=== PATIENT | male | born 1955 | race Caucasian/White ===

== ENCOUNTER 2017-02-20 12:56 | Emergency (ER) | payer OTHER ==
[~2017-02-20] VITALS: Ht 177.8 cm; Wt 98.0 kg
[2017-02-20 12:59] VITALS: Ht 177.8 cm; Wt 98.0 kg
[2017-02-20] MEDS ORDERED: SOD CHLORIDE 0.9% 2,000 ML IV STA (13:46)
[2017-02-20 14:19] LABS: BASOPHIL # 0.1 10^3/ul (0.0-0.1); BASOPHILS % 0.7 % (0.0-2.0); EOSINOPHILS # 0.2 10^3/ul (0.0-0.5); EOSINOPHILS % 1.6 % (0.0-7.0); HEMATOCRIT 43.1 % (42.0-52.0); LYMPHOCYTES # 2.2 10^3/ul (0.8-2.9); LYMPHOCYTES % 23.1 % (15.0-51.0); MEAN CORPUSCULAR HEMOGLOBIN 30.2 pg (29.0-33.0); MEAN CORPUSCULAR HGB CONC 34.8 g/dl (32.0-37.0); MEAN CORPUSCULAR VOLUME 86.9 fl (82.0-101.0); MEAN PLATELET VOLUME 11.2 fl (7.4-10.4); MONOCYTE # 0.6 10^3/ul (0.3-0.9); MONOCYTES % 6.7 % (0.0-11.0); NEUTROPHIL # 6.3 10^3/ul (1.6-7.5); NEUTROPHILS % 67.5 % (39.0-77.0); PLATELET COUNT 217 10^3/UL (140-415); RED BLOOD COUNT 4.96 10^6/ul (4.70-6.10); RED CELL DISTRIBUTION WIDTH 11.9 % (11.5-14.5); WHITE BLOOD COUNT 9.4 10^3/ul (4.8-10.8)
[2017-02-20] MEDS ORDERED: PANT40TA3 PO (14:23)
[2017-02-20] MEDS ORDERED: METF500T4 PO (14:26)
[2017-02-20] MEDS ORDERED: GABA300C16 PO (14:29)
[2017-02-20] MEDS ORDERED: TRIA15CR55 TOP (14:30)
[2017-02-20 14:32] LABS: ADD UMIC NO; UR ASCORBIC ACID 40 mg/dL (NEGATIVE); UR BILIRUBIN (Dip) NEGATIVE (NEGATIVE); UR BLOOD (Dip) NEGATIVE (NEGATIVE); UR CLARITY CLEAR (CLEAR); UR COLOR YELLOW (YELLOW); UR GLUCOSE (Dip) 3+ mg/dL (NEGATIVE); UR KETONES (Dip) TRACE mg/dL (NEGATIVE); UR LEUKOCYTE ESTERASE (Dip) NEGATIVE Leu/ul (NEGATIVE); UR NITRITE (Dip) NEGATIVE (NEGATIVE); UR SPECIFIC GRAVITY (Dip) 1.025 (1.003-1.030); UR TOTAL PROTEIN (Dip) NEGATIVE (NEGATIVE); UR UROBILINOGEN (Dip) NEGATIVE (NEGATIVE)
[2017-02-20 14:41] LABS: CALCIUM 9.9 mg/dl (8.4-10.2); CREATININE 0.68 mg/dl (0.61-1.24); POTASSIUM 4.2 mmol/L (3.5-5.1)
--- NOTE | 2017-02-20 14:42 | ERD ---
ER Documentation Chief Complaint Date/Time DATE: 02/20/17 TIME: 14:40 Chief Complaint BG 375 at home here BG 291 HPI Patient is a 61-year-old male with new onset diabetes that was diagnosed this past Saturday who presents with high blood sugar. He has noticed that his sugar was 375 at home. He is taking metformin 500 mg twice daily and is not missing any doses since Saturday. He was having feet pain bilaterally for a long time which was getting worse which is why he went to the doctor in the first place. He had not been to a doctor for 30 years prior to that. He is going to the [facility] for his primary care at this time. ROS All systems reviewed and are negative except as per history of present illness. Medications Home Meds Reported Medications Triamcinolone Acetonide* (Kenalog*) 0.1%-15GM Cr, 1 APPLIC TOP BID, #1 TUB 02/20/17 Gabapentin* (Gabapentin*) 300 Mg Capsule, 300 MG PO TID, #90 CAP 02/20/17 Metformin Hcl* (Metformin Hcl*) 500 Mg Tablet, 500 MG PO WITH BREAKFAST DINNE, # 30 TAB 02/20/17 Discontinued Reported Medications Pantoprazole* (Protonix*) 40 Mg Tablet.dr, 40 MG PO DAILY, TAB 02/20/17 Allergies Allergies: Coded Allergies: Penicillins (Unverified Allergy, Unknown, RASH HIVES, 02/20/17) PMhx/Soc Diabetes FmHx Family History: diabetes Physical Exam Vitals Vital Signs Date Time Temp Pulse Resp B/P Pulse Ox O2 Delivery O2 Flow Rate FiO2 02/20/17 12:59 99.2 19 19 141/72 99 Physical Exam Const: No acute distress Head: Atraumatic Eyes: Normal Conjunctiva ENT: Normal External Ears, Nose and Mouth. Neck: Full range of motion..~ No meningismus. Resp: Clear to auscultation bilaterally Cardio: Regular rate and rhythm, no murmurs Abd: Soft, non tender, non distended. Normal bowel sounds Skin: No petechiae or rashes Back: No midline or flank tenderness Ext: No cyanosis, or edema Neur: Awake and alert Psych: Normal Mood and Affect Result Diagram: 02/20/17 1400 Results 24 hrs Laboratory Tests Test 02/20/17 13:07 02/20/17 14:00 Bedside Glucose 291mg/dL White Blood Count 9.410^3/ul Red Blood Count 4.9610^6/ul Hemoglobin 15.0g/dl Hematocrit 43.1% Mean Corpuscular Volume 86.9fl Mean Corpuscular Hemoglobin 30.2pg Mean Corpuscular Hemoglobin Concent 34.8g/dl Red Cell Distribution Width 11.9% Platelet Count 07252^3/UL Mean Platelet Volume 11.2fl Neutrophils % 67.5% Lymphocytes % 23.1% Monocytes % 6.7% Eosinophils % 1.6% Basophils % 0.7% Nucleated Red Blood Cells % 0.0/100WBC Neutrophils # 6.310^3/ul Lymphocytes # 2.210^3/ul Monocytes # 0.610^3/ul Eosinophils # 0.210^3/ul Basophils # 0.110^3/ul Nucleated Red Blood Cells # 0.010^3/ul Urine Color YELLOW Urine Clarity CLEAR Urine pH 5.0 Urine Specific [place] 1.025 Urine Ketones TRACEmg/dL Urine Nitrite NEGATIVEmg/dL Urine Bilirubin NEGATIVEmg/dL Urine Urobilinogen NEGATIVEmg/dL Urine Leukocyte Esterase NEGATIVELeu/ul Urine Hemoglobin NEGATIVEmg/dL Urine Glucose 3+mg/dL Urine Total Protein NEGATIVEmg/dl Current Medications Medications (Trade) Dose Ordered Sig/Henrique Route PRN Reason Start Time Stop Time Status Last Admin Dose Admin Sodium Chloride (NS) 2,000 ml @ 1,000 mls/hr Q2H STAT IV 02/20/17 13:46 02/20/17 15:45 02/20/17 14:31 Procedures/MDM Patient is a 61-year-old male with diabetes who presents with diabetes. The patient will have laboratory studies and urinalysis done to rule out diabetic ketoacidosis. He will be given to his normal sent for fluid resuscitation. White blood cell count is normal and I doubt infection at this time. If the patient is not in DKA I believe outpatient management is appropriate but he will need to continue taking his Metformin and increased metformin until he gets to 1000 mg twice daily. This should be done under the care of his primary doctor. If this is not enough to control his blood sugars he may need another oral medication and possibly even insulin in the future. However I believe outpatient management is appropriate and he could return for any worsening symptoms. He is in no distress here in the emergency department. Departure Diagnosis: Primary Impression: Hyperglycemia Condition: Fair Patient Instructions: Hyperglycemia (High Blood Sugar) Referrals: [facility] YOU HAVE RECEIVED A MEDICAL SCREENING EXAM AND THE RESULTS INDICATE THAT YOU DO NOT HAVE A CONDITION THAT REQUIRES URGENT TREATMENT IN THE EMERGENCY DEPARTMENT. FURTHER EVALUATION AND TREATMENT OF YOUR CONDITION CAN WAIT UNTIL YOU ARE SEEN IN YOUR DOCTORS OFFICE WITHIN THE NEXT 1-2 DAYS. IT IS YOUR RESPONSIBILITY TO MAKE AN APPOINTMENT FOR FOLOW-UP CARE. IF YOU HAVE A PRIMARY DOCTOR --you should call your primary doctor and schedule an appointment IF YOU DO NOT HAVE A PRIMARY DOCTOR YOU CAN CALL OUR PHYSICIAN REFERRAL HOTLINE AT IF YOU CAN NOT AFFORD TO SEE A PHYSICIAN YOU CAN CHOSE FROM THE FOLLOWING [facility] [address] [facility]. [facility] [place] [address] [facility] [facility] [address] [facility] [facility] [address] [facility] [place] [address] [facility]. [facility]. [address] Additional Instructions: Call your primary care doctor TOMORROW for an appointment during the next 1-2 days.See the doctor sooner or return here if your condition worsens before your appointment time. BASIL STRINGER MD Feb 20, 2017 14:42
[2017-02-20 18:21] VITALS: BP 160/70; PULSE 62; RESP 19; TEMP 98
== END 2017-02-20 18:23 | disposition home or self-care (01) ==
LOC: E/R 12:56
DX: E11.65 Type 2 diabetes mellitus with hyperglycemia (principal); Z79.84 Long term (current) use of oral hypoglycemic drugs
CPT/HCPCS: 36415; 80048; 81003; 82962; 83605; 85025; 96360; 96361; J7030; Z7502